=== PATIENT | male | born 1935 | race Caucasian/White ===

== ENCOUNTER → 2016-11-26 | Outpatient (CLI) | payer OTHER, MEDICARE | LOC: BHCLAF 11:00 | PROVIDERS: ATTEND Internal Medicine Cardiovascular Disease | DX: I48.91 Unspecified atrial fibrillation (principal); Z95.0 Presence of cardiac pacemaker; Z79.01 Long term (current) use of anticoagulants | CPT/HCPCS: 93005-PO ==

== ENCOUNTER 2018-02-10 06:53 | Day surgery (SDC) | payer OTHER, MEDICARE ==
[2018-02-10] MEDS ORDERED: ceFAZolin 2 GM/DEXTROSE 100 ML IV ONE (06:57)
[2018-02-10] MEDS ORDERED: DIAZEPAM 5 MG TAB PO ONE (06:57)
[2018-02-10] MEDS ORDERED: diphenhydrAMINE 25 MG CAP PO ONE (06:57)
[2018-02-10] MEDS ORDERED: BACITRACIN IRRIGATION/NS 50,000 UNITS/1,000 ML BTL IRR ONE (06:57)
[2018-02-10] MEDS ORDERED: NS 1,000 ML IV ONE (06:57)
[2018-02-10 07:49] LABS: PLATELET COUNT 144 10^3/uL (150-400)
[2018-02-10 07:54] LABS: INR 1.43 (0.83-1.16); PROTIME(PATIENT) 17.6 SEC (12.0-15.0)
--- NOTE | 2018-02-10 08:17 | PDPROPOC ---
Sedation Plan of Care Sedation Plan of Care: vital signs stable, mental status noted, patient educated of risks, benefits, alternatives, patient can tolerate sedation ASA Classification: ASA 2 Planned drugs: fentanyl, midazolam Mallampati Score: Class 2 Mallampati Reference Image: Patient passed 3-3-2 rule?: Yes
--- NOTE | 2018-02-10 08:17 | PDHPUP ---
History & Physical Update H&P update statement: This history and physical update is based on an assessment of the patient which was completed after admission or registration (within 24 hours), but prior to the surgery/procedure. H&P update: H&P reviewed & patient examined, no change in patient's condition since H&P completed
[2018-02-10] MEDS ORDERED: LIDOCAINE 1% 300 MG/30 ML SDV ONE (08:32)
[2018-02-10] MEDS ORDERED: MIDAZOLAM 2 MG/2 ML VIAL ONE (08:33)
[2018-02-10] MEDS ORDERED: BUPIVACAINE 0.5% 30 ML SDV ONE (08:33)
[2018-02-10] MEDS ORDERED: LIDO/EPI 1% **for epidural** 30 ML SDV ONE (08:33)
[2018-02-10] MEDS ORDERED: fentaNYL 100 MCG/2 ML INJ ONE (08:33)
--- NOTE | 2018-02-10 10:55 | SUROPNOTE ---
[facility] Operative Report - Surgery PERMANENT PACER IMPLANTATION PROCEDURE PERFORMED: COMPLICATIONS: ESTIMATED BLOOD LOSS: SITE: LEFT/RIGHT subclavian vein access. INDICATION: Pacer at [place] PROCEDURE: The risks, benefits, and alternative of the procedure were all discussed with the patient and the patient's family in detail at great length. Overall options and precautions of the pacemaker and indications were all discussed. They agreed to the pacemaker. The consent was signed and placed in the chart. The patient was taken to the Cardiac Catheterization Lab, where she was monitored throughout the whole procedure. The patient was sterilely prepped and draped in the usual manner for permanent pacemaker insertion. Using a lidocaine the area of the LEFT/RIGHT subclavian vein and left pectodeltoid region was anesthetized locally. IV sedation, increments, and analgesics were given. The old generator was explanted, and the atrial and ventricular leads were interrogated to ensure no changes to impedance or sensing were noted. The leads was then connected on pulse generator. The pocket was then irrigated and cleansed. Pulse generator and the wire was then inserted into the pocket, and sutured into position. The deep pocket (initial suture) was then closed with #2-0 suture. An intermediate, running suture (#3-0) was placed, and finally, the skin was closed with #4-0 sutures using a subcuticular uninterrupted technique. The area was then cleansed and dried. Steri-Strips and pressure dressing was then applied. The patient tolerated the procedure well. There were no complications. Settings on the pacemaker: IMPLANT DEVICE: Assurity MRI (SN: [id number]) (Model number: [id number]) - New generator VENTRICLE LEAD: SJM Tendril SDX S# [id number] (10-06-08 implant) ATRIAL LEAD: SJM Tendril SDX S# [id number] (10-06-08 implant) HARMONY PARAMETER SETTINGS ARE FOLLOWS: 60 The patient tolerated the procedure well. There was no complications. The patient went to recovery in stable condition. Thank you for allowing me to participate in her care. If you have any questions or concerns, please feel free to contact
--- NOTE | 2018-02-11 17:12 | CPEKG ---
Test Reason : OPEN Blood Pressure : / mmHG Vent. Rate : 065 BPM Atrial Rate : 069 BPM P-R Int : 059 ms QRS Dur : 135 ms QT Int : 459 ms P-R-T Axes : 000 -85 087 degrees QTc Int : 478 ms Afib/flutter and ventricular-paced rhythm Confirmed by Justin Elaine ([id number]) on 02/11/2018 5:12:22 PM Referred By: Confirmed By:Justin Elaine
--- NOTE | 2018-02-11 17:44 | CPEKG ---
Test Reason : OPEN Blood Pressure : / mmHG Vent. Rate : 070 BPM Atrial Rate : 000 BPM P-R Int : 066 ms QRS Dur : 147 ms QT Int : 466 ms P-R-T Axes : 000 -85 087 degrees QTc Int : 503 ms Ventricular-paced rhythm Confirmed by Justin Elaine ([id number]) on 02/11/2018 5:43:32 PM Referred By: Confirmed By:Justin Elaine
== END 2018-02-10 13:30 | disposition home or self-care (01) ==
LOC: FCATH 06:53
PROVIDERS: ATTEND Internal Medicine Cardiovascular Disease
PROC: 0JPT0PZ Removal of Cardiac Rhythm Related Device from Trunk Subcutaneous Tissue and Fascia, Open Approach (ICD-10-PCS; principal; 2018-02-10)
PROC: 0JH606Z Insertion of Pacemaker, Dual Chamber into Chest Subcutaneous Tissue and Fascia, Open Approach (ICD-10-PCS; principal; 2018-02-10)
DX: Z45.010 Encounter for checking and testing of cardiac pacemaker pulse generator [battery] (principal); I49.5 Sick sinus syndrome; I48.91 Unspecified atrial fibrillation; Z79.01 Long term (current) use of anticoagulants; E78.5 Hyperlipidemia, unspecified; I10 Essential (primary) hypertension
CPT/HCPCS: C1785; J0690; J2250; J3010